=== PATIENT | female | born 1940 | race Hispanic/Latino ===

== ENCOUNTER 2016-04-20 10:27 | Outpatient (CLI) | payer MEDICARE ==
--- NOTE | 2016-04-20 12:06 | Mammography Report ---
BONE DEXA:04/20/16 10:27:00 CLINICAL: Postmenopausal. No comparison. TECHNIQUE: Two site bone DEXA performed on an Hologic scanner. FINDINGS: The average BMD of the lumbar spine L1-L4 is 1.223g/cm squared with a T-score of +1.6 and a Z-score of +4.1. The average BMD of the left hip is 0.452g/cm squared with a T-score of -4.0 and a Z-score of -2.1. IMPRESSION: 1. WHO classification: Normal with average fracture risk based on lumbar spine measurements. However, I suspect the BMD is falsely elevated in the spine because of scoliosis and endplate sclerosis at all levels. 2. WHO classification: Osteoporosis with I. fracture risk based on left hip measurements. RECOMMENDATION: Clinical correlation and routine screening. DEFINITIONS: BMD = Bone Mineral Density T-score = BMD related to mean peak bone mass of young adult (mean expressed in Standard Deviation) Z-score = Age matched BMD expressed in SD World Health Organization (WHO) Diagnostic Criteria Normal T-score > -1 SD Osteopenia T-score between -1 and -2.4 SD Osteoporosis T-score -2.5 SD or below NOTE: BMD is not the only risk factor for fracture. One should also consider factors such as the patient's age, risk of falling, previous osteoporotic fracture, family history of osteoporotic fractures, current smoker, and low body weight. Z-scores are not calculated if >80 years of age.
--- NOTE | 2016-04-20 13:40 | Ultrasound Report ---
RIGHT UPPER QUADRANT ULTRASOUND: HISTORY: Abdominal pain. Technique: Transabdominal ultrasound imaging with Doppler interrogation. FINDINGS: There appears to be a small amount of sludge in the gallbladder. No shadowing stones, wall thickening or abnormal distention. The common duct is normal in caliber. Images of the liver parenchyma, pancreas, right kidney and aorta are within normal limits. No perihepatic ascites. IMPRESSION: Small amount of sludge in the gallbladder.
== END 2016-04-20 10:28 | disposition home or self-care (01) ==
LOC: MAMMO 10:27
PROVIDERS: ATTEND Internal Medicine
DX: M81.0 Age-related osteoporosis without current pathological fracture (principal); Z78.0 Asymptomatic menopausal state
CPT/HCPCS: 76705; 77080

== ENCOUNTER 2020-09-12 14:01 | Inpatient (IN) | payer MEDICARE ==
[2020-09-12] MEDS ORDERED: SODIUM CHLORIDE 0.9% 500 ML 500 ML IV ONE (17:40)
[2020-09-12] MEDS ORDERED: CEFEPIME/NS 2 GM/100 ML 2 GM/100 ML BAG IV ONE (17:40)
--- NOTE | 2020-09-12 18:30 | XRay Report ---
RIGHT HIP 3 VIEWS INDICATION / CLINICAL INFORMATION: pain COMPARISON: None available. FINDINGS: BONES / JOINT(S): Previous placement of a right hip prosthesis. Superior and lateral displacement of the distal fragment. No acute appearing bony injury identified. SOFT TISSUES: No significant abnormality. ADDITIONAL FINDINGS: IVC filter. IVC Filter Recommendation: IVC filters should be removed if possible when they are no longer clinical ly necessary. (1) Refer to the established IVC filter management plan; (2) If there is no established plan for the patient's IVC filter, consider referral to interventional/vascular clinician on a nonem ergent basis for evaluation. . Signer Name: Phuc Ware MD Signed: 09/12/2020 6:26 PM Workstation Name: [id number]
--- NOTE | 2020-09-12 18:31 | XRay Report ---
CHEST 1 VIEW 09/12/2020 5:46 PM INDICATION / CLINICAL INFORMATION: weakness. COMPARISON: 05/25/2006. FINDINGS: SUPPORT DEVICES: ICD in satisfactory position. HEART / MEDIASTINUM: No significant abnormality. LUNGS / PLEURA: No significant pulmonary or pleural abnormality. No pneumothorax. ADDITIONAL FINDINGS: No significant additional findings. IMPRESSION: No acute abnormality. Signer Name: Phuc Ware MD Signed: 09/12/2020 6:27 PM Workstation Name: [id number]
[2020-09-12 18:34] LABS: Albumin 3.4 g/dL (3.9-5); Calcium 8.3 mg/dL (8.4-10.2)
[2020-09-12 18:50] LABS: Basophils # (Auto) 0.1 K/mm3 (0.0-0.1); Basophils % (Auto) 0.9 % (0.0-1.8); Eosinophils # (Auto) 0.1 K/mm3 (0.0-0.4); Hematocrit 29.6 % (30.3-42.9); Hemoglobin 9.8 gm/dl (10.1-14.3); Lymphocytes # (Auto) 1.3 K/mm3 (1.2-5.4); Lymphocytes % (Auto) 20.5 % (13.4-35.0); Mean Corpuscular HGB Conc 33 % (30-34); Mean Corpuscular Volume 97 fl (79-97); Monocytes # (Auto) 0.6 K/mm3 (0.0-0.8); Platelet Count 232 K/mm3 (140-440); Red Blood Count 3.07 M/mm3 (3.65-5.03); Red Cell Distribution Width 15.6 % (13.2-15.2)
[2020-09-12] MEDS ORDERED: propofoL 200 MG/20 ML VIAL IV ONE ×3 (19:20→20:32)
--- NOTE | 2020-09-12 20:44 | XRay Report ---
RIGHT HIP ONE VIEW INDICATION / CLINICAL INFORMATION: reduction COMPARISON: Earlier the same day. FINDINGS: BONES / JOINT(S): Previous placement right hip prosthesis. Persistent superior and lateral dislocatio n of the femoral component. SOFT TISSUES: No significant abnormality. ADDITIONAL FINDINGS: None. Signer Name: Phuc Ware MD Signed: 09/12/2020 8:39 PM Workstation Name: [id number]
--- NOTE | 2020-09-12 21:29 | Emergency Department Report ---
ED General Adult HPI - General Chief complaint: Wound/Laceration Stated complaint: FALL Time Seen by Provider: 09/12/20 16:00 Source: patient Mode of arrival: Stretcher Limitations: No Limitations - History of Present Illness Initial comments: Patient presents to the emergency department with a chief complaint of right hip pain after a ground-level fall. Patient denies hitting her head or have a loss of consciousness. Patient states that she has had 2 hip surgeries within the last couple of months. Severity scale (0 -10): 0 - Related Data Home Medications Medication Instructions Recorded Confirmed Last Taken ALPRAZolam [Xanax TAB] 0.5 mg PO BID PRN 05/24/16 09/12/20 05/24/16 09:00 FLUoxetine HCL [FLUoxetine] 40 mg PO QAM 05/24/16 09/12/20 05/24/16 09:00 HYDROcodone/APAP 7.5-325 [[place] 1 each PO Q8HR PRN 05/24/16 09/12/20 05/24/16 16:00 7.5-325 mg TAB] Previous Rx's Medication Instructions Recorded Last Taken Type Apixaban [Eliquis] 5 mg PO BID #60 tablet 05/31/16 Unknown Rx Aspirin 81 mg PO DAILY #30 tab.chew 05/31/16 Unknown Rx Furosemide [Lasix TAB] 20 mg PO QDAY #30 tablet 05/31/16 Unknown Rx Metoprolol Succinate 100 mg PO BID #60 tab.er.24h 05/31/16 Unknown Rx Potassium Chloride [Klor-Con] 20 meq PO DAILY #30 05/31/16 Unknown Rx Valsartan 80 mg PO DAILY #30 tablet 05/31/16 Unknown Rx dilTIAZem [Cardizem] 120 mg PO DAILY #30 tablet 05/31/16 Unknown Rx Allergies Allergy/AdvReac Type Severity Reaction Status Date / Time Sulfa (Sulfonamide AdvReac Nausea Verified 05/24/16 17:11 Antibiotics) ED Review of Systems ROS: Stated complaint: FALL Other details as noted in HPI Comment: All other systems reviewed and negative Constitutional: denies: chills, fever Eyes: denies: eye pain, eye discharge, vision change ENT: denies: ear pain, throat pain Respiratory: denies: cough, shortness of breath, wheezing Cardiovascular: denies: chest pain, palpitations Endocrine: no symptoms reported Gastrointestinal: denies: abdominal pain, nausea, diarrhea Genitourinary: denies: urgency, dysuria, discharge Musculoskeletal: other (Right hip pain). denies: back pain, joint swelling, ar thralgia Skin: denies: rash, lesions Neurological: denies: headache, weakness, paresthesias Psychiatric: denies: anxiety, depression Hematological/Lymphatic: denies: easy bleeding, easy bruising ED Past Medical Hx - Past Medical History Previous Medical History?: Yes Hx Hypertension: Yes Hx Heart Attack/AMI: No Hx Congestive Heart Failure: No Hx Deep Vein Thrombosis: No Hx Arthritis: Yes (all over) Hx Psychiatric Treatment: Yes (anxiety) - Surgical History Hx Coronary Stent: No Additional Surgical History: Hysterectomy - Social History Smoking Status: Never Smoker Substance Use Type: None - Medications Home Medications: Home Medications Medication Instructions Recorded Confirmed Last Taken Type ALPRAZolam [Xanax TAB] 0.5 mg PO BID PRN 05/24/16 09/12/20 05/24/16 09:00 History FLUoxetine HCL [FLUoxetine] 40 mg PO QAM 05/24/16 09/12/20 05/24/16 09:00 History HYDROcodone/APAP 7.5-325 [[place] 1 each PO Q8HR PRN 05/24/16 09/12/20 05/24/16 16:00 History 7.5-325 mg TAB] Apixaban [Eliquis] 5 mg PO BID #60 tablet 05/31/16 09/12/20 Unknown Rx Aspirin 81 mg PO DAILY #30 tab.chew 05/31/16 09/12/20 Unknown Rx Furosemide [Lasix TAB] 20 mg PO QDAY #30 tablet 05/31/16 09/12/20 Unknown Rx Metoprolol Succinate 100 mg PO BID #60 tab.er.24h 05/31/16 09/12/20 Unknown Rx Potassium Chloride [Klor-Con] 20 meq PO DAILY #30 05/31/16 09/12/20 Unknown Rx Valsartan 80 mg PO DAILY #30 tablet 05/31/16 09/12/20 Unknown Rx dilTIAZem [Cardizem] 120 mg PO DAILY #30 tablet 05/31/16 09/12/20 Unknown Rx ED Physical Exam - General Limitations: No Limitations General appearance: alert, in no apparent distress - Head Head exam: Present: atraumatic, normocephalic - Eye Eye exam: Present: normal appearance, PERRL, EOMI - ENT ENT exam: Present: mucous membranes moist - Neck Neck exam: Present: normal inspection - Respiratory Respiratory exam: Present: normal lung sounds bilaterally. Absent: respiratory distress - Cardiovascular Cardiovascular Exam: Present: regular rate, normal rhythm. Absent: systolic murmur, diastolic murmur, rubs, gallop - GI/Abdominal GI/Abdominal exam: Present: soft, normal bowel sounds - Extremities Exam Extremities exam: Present: other (Right leg is rotated and shortened; patient has bruising to the right hip with multiple skin tears to the right lower e xtremity) - Back Exam Back exam: Present: normal inspection - Neurological Exam Neurological exam: Present: alert, oriented X3 - Psychiatric Psychiatric exam: Present: normal affect, normal mood - Skin Skin exam: Present: warm, dry, intact, normal color. Absent: rash ED Course Vital Signs 09/12/20 09/12/20 09/12/20 14:05 16:56 17:01 Temperature 98.4 F Pulse Rate 62 53 L Pulse Rate [ Intra-Procedure ] Pulse Rate [ Post-Procedure] Pulse Rate [Pre -Procedure] Respiratory 16 16 24 Rate Respiratory Rate [Intra- Procedure] Respiratory Rate [Post- Procedure] Respiratory Rate [Pre- Procedure] Blood Pressure 116/56 136/43 Blood Pressure [Intra- Procedure] Blood Pressure [Post-Procedure ] Blood Pressure [Pre-Procedure] O2 Sat by Pulse 100 97 97 Oximetry O2 Sat by Pulse Oximetry [ Intra-Procedure ] O2 Sat by Pulse Oximetry [Post -Procedure] O2 Sat by Pulse Oximetry [Pre- Procedure] 09/12/20 09/12/20 09/12/20 17:03 18:01 19:01 Temperature Pulse Rate 66 52 L Pulse Rate [ Intra-Procedure ] Pulse Rate [ Post-Procedure] Pulse Rate [Pre -Procedure] Respiratory 18 13 25 H Rate Respiratory Rate [Intra- Procedure] Respiratory Rate [Post- Procedure] Respiratory Rate [Pre- Procedure] Blood Pressure 143/45 143/40 Blood Pressure [Intra- Procedure] Blood Pressure [Post-Procedure ] Blood Pressure [Pre-Procedure] O2 Sat by Pulse 97 98 99 Oximetry O2 Sat by Pulse Oximetry [ Intra-Procedure ] O2 Sat by Pulse Oximetry [Post -Procedure] O2 Sat by Pulse Oximetry [Pre- Procedure] 09/12/20 09/12/20 09/12/20 19:19 19:31 20:01 Temperature Pulse Rate 54 L 54 L Pulse Rate [ Intra-Procedure ] Pulse Rate [ Post-Procedure] Pulse Rate [Pre -Procedure] Respiratory 17 20 Rate Respiratory Rate [Intra- Procedure] Respiratory Rate [Post- Procedure] Respiratory Rate [Pre- Procedure] Blood Pressure 150/48 129/53 Blood Pressure [Intra- Procedure] Blood Pressure [Post-Procedure ] Blood Pressure [Pre-Procedure] O2 Sat by Pulse 99 100 100 Oximetry O2 Sat by Pulse Oximetry [ Intra-Procedure ] O2 Sat by Pulse Oximetry [Post -Procedure] O2 Sat by Pulse Oximetry [Pre- Procedure] 09/12/20 09/12/20 09/12/20 20:20 20:31 20:32 Temperature Pulse Rate 55 L Pulse Rate [ 45 L 55 L Intra-Procedure ] Pulse Rate [ 56 L 55 L Post-Procedure] Pulse Rate [Pre 58 L 55 L -Procedure] Respiratory 19 Rate Respiratory 8 L 29 H Rate [Intra- Procedure] Respiratory 6 L 17 Rate [Post- Procedure] Respiratory 11 L 8 L Rate [Pre- Procedure] Blood Pressure 121/55 Blood Pressure 115/49 106/52 [Intra- Procedure] Blood Pressure 108/48 106/52 [Post-Procedure ] Blood Pressure 121/55 [Pre-Procedure] O2 Sat by Pulse 99 100 Oximetry O2 Sat by Pulse 100 100 Oximetry [ Intra-Procedure ] O2 Sat by Pulse 100 100 Oximetry [Post -Procedure] O2 Sat by Pulse 100 100 Oximetry [Pre- Procedure] 09/12/20 09/12/20 09/12/20 20:50 21:01 21:31 Temperature Pulse Rate 59 L 52 L 50 L Pulse Rate [ Intra-Procedure ] Pulse Rate [ Post-Procedure] Pulse Rate [Pre -Procedure] Respiratory 12 16 20 Rate Respiratory Rate [Intra- Procedure] Respiratory Rate [Post- Procedure] Respiratory Rate [Pre- Procedure] Blood Pressure 106/49 107/56 Blood Pressure [Intra- Procedure] Blood Pressure [Post-Procedure ] Blood Pressure [Pre-Procedure] O2 Sat by Pulse 100 100 Oximetry O2 Sat by Pulse Oximetry [ Intra-Procedure ] O2 Sat by Pulse Oximetry [Post -Procedure] O2 Sat by Pulse Oximetry [Pre- Procedure] 09/12/20 22:01 Temperature Pulse Rate 51 L Pulse Rate [ Intra-Procedure ] Pulse Rate [ Post-Procedure] Pulse Rate [Pre -Procedure] Respiratory 19 Rate Respiratory Rate [Intra- Procedure] Respiratory Rate [Post- Procedure] Respiratory Rate [Pre- Procedure] Blood Pressure 111/51 Blood Pressure [Intra- Procedure] Blood Pressure [Post-Procedure ] Blood Pressure [Pre-Procedure] O2 Sat by Pulse 100 Oximetry O2 Sat by Pulse Oximetry [ Intra-Procedure ] O2 Sat by Pulse Oximetry [Post -Procedure] O2 Sat by Pulse Oximetry [Pre- Procedure] - Orthopedic Joint Reduction Joint #1 Consent Obtained: written consent Time Out Performed: Yes Side: right Joint Reduction Location: hip Analgesia: moderate sedation Technique Used: traction/counter-traction Post-Reduction Neuro Exam: intact Post-Reduction Vascular Exam: intact Post Reduction X-Ray Obtained: No Post Reduction X-Ray Results: not reduced Splint Applied: Yes Patient Tolerated Procedure: well, no complications Joint #2 Consent Obtained: written consent Time Out Performed: Yes Side: right Joint Reduction Location: other (Hip) Analgesia: moderate sedation Technique Used: traction/counter-traction Post-Reduction Neuro Exam: intact Post-Reduction Vascular Exam: intact Post Reduction X-Ray Obtained: No Post Reduction X-Ray Results: not reduced Splint Applied: Yes Patient Tolerated Procedure: well, no complications ED Medical Decision Making - Lab Data Result diagrams: 09/12/20 17:55 09/12/20 17:55 Lab Results 09/12/20 09/12/20 09/12/20 Range/Units 17:55 17:55 17:55 WBC 6.4 (4.5-11.0) K/mm3 RBC 3.07 L (3.65-5.03) M/mm3 Hgb 9.8 L (10.1-14.3) gm/dl Hct 29.6 L (30.3-42.9) % MCV 97 (79-97) fl MCH 32 (28-32) pg MCHC 33 (30-34) % RDW 15.6 H (13.2-15.2) % Plt Count 232 (140-440) K/mm3 Lymph % (Auto) 20.5 (13.4-35.0) % [place] % (Auto) 9.0 H (0.0-7.3) % Eos % (Auto) 1.0 (0.0-4.3) % Baso % (Auto) 0.9 (0.0-1.8) % Lymph # (Auto) 1.3 (1.2-5.4) K/mm3 [place] # (Auto) 0.6 (0.0-0.8) K/mm3 Eos # (Auto) 0.1 (0.0-0.4) K/mm3 Baso # (Auto) 0.1 (0.0-0.1) K/mm3 Seg Neutrophils % 68.6 (40.0-70.0) % Seg Neutrophils # 4.4 (1.8-7.7) K/mm3 APTT 33.5 (24.2-36.6) Sec. Sodium 138 (137-145) mmol/L Potassium 4.4 (3.6-5.0) mmol/L Chloride 99.6 (98-107) mmol/L Carbon Dioxide 25 (22-30) mmol/L Anion Gap 18 mmol/L BUN 16 (7-17) mg/dL Creatinine 1.1 (0.6-1.2) mg/dL Estimated GFR 48 ml/min BUN/Creatinine Ratio 15 % Glucose 86 (65-100) mg/dL Lactic Acid (0.7-2.0) mmol/L Calcium 8.3 L (8.4-10.2) mg/dL Total Bilirubin 0.60 (0.1-1.2) mg/dL AST 18 (5-40) units/L ALT 11 (7-56) units/L Alkaline Phosphatase 83 (35-129) units/L Total Protein 6.4 (6.3-8.2) g/dL Albumin 3.4 L (3.9-5) g/dL Albumin/Globulin Ratio 1.1 % 09/12/20 Range/Units 17:55 WBC (4.5-11.0) K/mm3 RBC (3.65-5.03) M/mm3 Hgb (10.1-14.3) gm/dl Hct (30.3-42.9) % MCV (79-97) fl MCH (28-32) pg MCHC (30-34) % RDW (13.2-15.2) % Plt Count (140-440) K/mm3 Lymph % (Auto) (13.4-35.0) % [place] % (Auto) (0.0-7.3) % Eos % (Auto) (0.0-4.3) % Baso % (Auto) (0.0-1.8) % Lymph # (Auto) (1.2-5.4) K/mm3 [place] # (Auto) (0.0-0.8) K/mm3 Eos # (Auto) (0.0-0.4) K/mm3 Baso # (Auto) (0.0-0.1) K/mm3 Seg Neutrophils % (40.0-70.0) % Seg Neutrophils # (1.8-7.7) K/mm3 APTT (24.2-36.6) Sec. Sodium (137-145) mmol/L Potassium (3.6-5.0) mmol/L Chloride (98-107) mmol/L Carbon Dioxide (22-30) mmol/L Anion Gap mmol/L BUN (7-17) mg/dL Creatinine (0.6-1.2) mg/dL Estimated GFR ml/min BUN/Creatinine Ratio % Glucose (65-100) mg/dL Lactic Acid 1.10 (0.7-2.0) mmol/L Calcium (8.4-10.2) mg/dL Total Bilirubin (0.1-1.2) mg/dL AST (5-40) units/L ALT (7-56) units/L Alkaline Phosphatase (35-129) units/L Total Protein (6.3-8.2) g/dL Albumin (3.9-5) g/dL Albumin/Globulin Ratio % - Radiology Data Radiology results: report reviewed - Medical Decision Making The patient had a hemihip replacement done on the right side initially at [facility] The patient had a total hip replacement 3 weeks ago at [facility] Spoke to on-call orthopedic surgeon at [facility] who was Dr. Hernandez who contacted Dr. Saunders who was the patient surgeon at [facility] who stated the patient could be discharged home Contacted [facility] transfer center at 9:45 PM Contacted [facility] in the on diversion Contacted [facility] and they are also on total diversion Contacted [place] and they are also on total diversion Spoke to linen room houseperson and it was discovered that Dr. Calderon will be back on Tuesday Patient was placed in a knee immobilizer and will be admitted for pain control and immobility with orthopedic follow-up upon their return Critical care attestation.: If time is entered above; I have spent that time in minutes in the direct care of this critically ill patient, excluding procedure time. ED Disposition Clinical Impression: Hip dislocation, right, Immobility Disposition: OP ADMIT IP TO THIS HOSP Is pt being admited?: Yes Does the pt Need Aspirin: No Condition: Fair Referrals: PRIMARY CARE, [Primary Care Provider] - 3-5 Days
[2020-09-12] MEDS ORDERED: MORPHINE 2 MG/1 ML INJ IV PRN (23:04)
[2020-09-12] MEDS ORDERED: MORPHINE 4 MG/1 ML INJ IV PRN (23:04)
[2020-09-12] MEDS ORDERED: ACETAMINOPHEN 325 MG TAB PO PRN (23:04)
[2020-09-12] MEDS ORDERED: ONDANSETRON 4 MG/2 ML INJ IV PRN (23:04)
--- NOTE | 2020-09-12 23:12 | History and Physical Report ---
History of Present Illness Date of examination: 09/12/20 Date of admission: 09/12/20 22:34 Chief complaint: Right Hip pain s/p Fall History of present illness: 79-year-old white female with known history of A. fib currently on anticoagulation, arthritis and recent history of right hip surgery who presents to the emergency room today complaining of right hip pain after having a ground- level fall. Patient denies any loss of consciousness and denies hitting her he ad. She denies any headache or dizziness, no blurry vision, no nausea vomiting, no hematuria or dysuria, no abdominal pain. Patient denies any history of seizure disorder. She indicated that she was walking when right knee suddenly give away and fell. She admits that she has had multiple falls recently. Patient has had 2 hip surgeries within the last couple of months. She had right domo-hip surgery initially at [facility] and then subsequently had total hip replacement about 3 weeks ago at [facility]. Patient lives at home by herself and not able to ambulate properly. Work-up in the emergency room today, x-ray of the right hip shows previous placement of right hip prosthesis. Persistent superior and lateral dislocation of the femoral components. Labs were unremarkable. Multiple facilities were contacted for patient to be evaluated as there is no orthopedic surgeon on duty today. [facility], [facility], [facility] and [facility] while contacted without any success. Decision was made to keep patient in this facility pending arrival of the orthopedic surgeon. Patient will not be able to take care of herself at home as she currently cannot ambulate. Past History Past Medical History: arthritis, hypertension, other (Anxiety) Past Surgical History: hysterectomy Social history: no significant social history Family history: no significant family history Medications and Allergies Allergies Allergy/AdvReac Type Severity Reaction Status Date / Time Sulfa (Sulfonamide AdvReac Nausea Verified 05/24/16 17:11 Antibiotics) Home Medications Medication Instructions Recorded Confirmed Last Taken Type ALPRAZolam [Xanax TAB] 0.5 mg PO BID PRN 05/24/16 09/12/20 05/24/16 09:00 History FLUoxetine HCL [FLUoxetine] 40 mg PO QAM 05/24/16 09/12/20 05/24/16 09:00 History HYDROcodone/APAP 7.5-325 [[place] 1 each PO Q8HR PRN 05/24/16 09/12/20 05/24/16 16:00 History 7.5-325 mg TAB] Apixaban [Eliquis] 5 mg PO BID #60 tablet 05/31/16 09/12/20 Unknown Rx Aspirin 81 mg PO DAILY #30 tab.chew 05/31/16 09/12/20 Unknown Rx Furosemide [Lasix TAB] 20 mg PO QDAY #30 tablet 05/31/16 09/12/20 Unknown Rx Metoprolol Succinate 100 mg PO BID #60 tab.er.24h 05/31/16 09/12/20 Unknown Rx Potassium Chloride [Klor-Con] 20 meq PO DAILY #30 05/31/16 09/12/20 Unknown Rx Valsartan 80 mg PO DAILY #30 tablet 05/31/16 09/12/20 Unknown Rx dilTIAZem [Cardizem] 120 mg PO DAILY #30 tablet 05/31/16 09/12/20 Unknown Rx Active Meds: Active Medications Acetaminophen (Acetaminophen 325 Mg Tab) 650 mg PO Q4H PRN PRN Reason: Pain MILD(1-3)/Fever >100.5/AVERY Heparin Sodium (Porcine) (Heparin 5,000 Unit/1 Ml Vial) 5,000 unit SUB-Q Q8HR RENEA Magnesium Hydroxide (Magnesium Hydroxide (Mom) Oral Liqd Udc) 30 ml PO Q4H PRN PRN Reason: Constipation Morphine Sulfate (Morphine 2 Mg/1 Ml Inj) 2 mg IV Q4H PRN PRN Reason: Pain, Moderate (4-6) Morphine Sulfate (Morphine 4 Mg/1 Ml Inj) 4 mg IV Q4H PRN PRN Reason: Pain , Severe (7-10) Ondansetron HCl (Ondansetron 4 Mg/2 Ml Inj) 4 mg IV Q8H PRN PRN Reason: Nausea And Vomiting Sodium Chloride (Sodium Chloride 0.9% 10 Ml Flush Syringe) 10 ml IV BID RENEA Sodium Chloride (Sodium Chloride 0.9% 10 Ml Flush Syringe) 10 ml IV PRN PRN PRN Reason: LINE FLUSH Review of Systems Constitutional: no fever, no chills Ears, nose, mouth and throat: no nasal congestion, no sore throat Cardiovascular: no chest pain, no palpitations Respiratory: no cough, no shortness of breath Gastrointestinal: no abdominal pain, no nausea, no vomiting Genitourinary Female: no pelvic pain, no flank pain, no dysuria Musculoskeletal: frequent falls, other (Right hip pain), no neck pain, no low back pain Integumentary: no rash, no pruritis Neurological: no headaches, no confusion Psychiatric: no anxiety, no depression Endocrine: no polyphagia, no polydipsia, no polyuria, no nocturia Exam - Constitutional Vitals: Temp Pulse Resp BP Pulse Ox 98.4 F 51 L 23 131/35 100 09/12/20 14:05 09/12/20 22:31 09/12/20 22:31 09/12/20 22:31 09/12/20 22:31 General appearance: Present: no acute distress, well-nourished - EENT Eyes: Present: PERRL, EOM intact. Absent: scleral icterus ENT: hearing intact, clear oral mucosa, dentition normal - Neck Neck: Present: supple, normal ROM - Respiratory Respiratory effort: normal Respiratory: bilateral: CTA - Cardiovascular Rhythm: regular Heart Sounds: Present: S1 & S2. Absent: gallop, systolic murmur, diastolic murmur, rub, click - Extremities Extremities: no ischemia, pulses intact, pulses symmetrical, normal temperature, Full ROM Extremity abnormal: edema (3+ right lower extremity edema), erythema (Extensive erythema over right hip), tenderness (Mild tenderness over right hip), other (Dressing over wound on right leg) Peripheral Pulses: within normal limits - Abdominal General gastrointestinal: Present: soft, non-tender, non-distended, normal bowel sounds. Absent: mass - Integumentary Integumentary: Present: clear, warm, dry. Absent: rash - Musculoskeletal Musculoskeletal: strength equal bilaterally - Psychiatric Psychiatric: appropriate mood/affect, intact judgment & insight, memory intact, cooperative - Neurologic Neurologic: CNII-XII intact, no focal deficits, moves all extremities Results - Labs CBC & Chem 7: 09/12/20 17:55 09/12/20 17:55 Labs: Abnormal lab results 09/12/20 09/12/20 Range/Units 17:55 17:55 RBC 3.07 L (3.65-5.03) M/mm3 Hgb 9.8 L (10.1-14.3) gm/dl Hct 29.6 L (30.3-42.9) % RDW 15.6 H (13.2-15.2) % [place] % (Auto) 9.0 H (0.0-7.3) % Calcium 8.3 L (8.4-10.2) mg/dL Albumin 3.4 L (3.9-5) g/dL Assessment and Plan - Patient Problems (1) Hip dislocation, right Current Visit: Yes Status: Acute Plan to address problem: Right hip placed in immobilizer. Consult placed to orthopedic surgery for myke luation. We will place patient on analgesic medication as needed. (2) History of atrial fibrillation Current Visit: Yes Status: Acute Plan to address problem: Rate is currently controlled. Patient is on anticoagulation with apixaban. (3) Hypertension Current Visit: Yes Status: Acute Plan to address problem: Blood pressure stable. Will resume routine home medications and monitor blood pressure closely. (4) DVT prophylaxis Current Visit: Yes Status: Acute Plan to address problem: Patient currently on anticoagulation. (5) Full code status Current Visit: Yes Status: Acute Plan to address problem: Patient is full code.
[2020-09-13] MEDS: ALPRAZolam 0.5 MG TAB PO PRN ×3 (02:13→21:33)
[2020-09-13] MEDS ORDERED: HEPARIN 5,000 UNIT/1 ML VIAL SUB-Q SCH (06:00)
[2020-09-13 06:44] LABS: Basophils # (Auto) 0.1 K/mm3 (0.0-0.1); Eosinophils # (Auto) 0.2 K/mm3 (0.0-0.4); Eosinophils % (Auto) 2.9 % (0.0-4.3); Hematocrit 27.2 % (30.3-42.9); Hemoglobin 9.1 gm/dl (10.1-14.3); Lymphocytes # (Auto) 1.3 K/mm3 (1.2-5.4); Mean Corpuscular HGB Conc 33 % (30-34); Mean Corpuscular Volume 97 fl (79-97); Monocytes # (Auto) 0.5 K/mm3 (0.0-0.8); Monocytes % (Auto) 9.4 % (0.0-7.3); Platelet Count 228 K/mm3 (140-440); Red Blood Count 2.82 M/mm3 (3.65-5.03); Red Cell Distribution Width 15.7 % (13.2-15.2)
[2020-09-13 06:52] LABS: INR 1.03 (0.87-1.13)
[2020-09-13 07:01] LABS: Calcium 8.4 mg/dL (8.4-10.2)
[2020-09-13] MEDS: APIXABAN 5 MG TAB PO SCH ×2 (11:36→21:33)
[2020-09-13] MEDS: FLUoxetine 20 MG CAP PO SCH (11:36)
[2020-09-13] MEDS: ASPIRIN 81 MG TAB CHEW PO SCH (11:36)
[2020-09-13] MEDS: FUROSEMIDE 20 MG TAB PO SCH (11:36)
[2020-09-13] MEDS: METOPROLOL SUCCINATE XL 100 MG TAB PO SCH ×2 (11:39→18:07)
[2020-09-13] MEDS: dilTIAZem CD 120 MG CAP PO SCH (12:55)
[2020-09-13] MEDS: POTASSIUM CHLORIDE 20 MEQ PACKET PO SCH (12:55)
[2020-09-13] MEDS: VALSARTAN 40 MG TAB PO SCH (13:00)
--- NOTE | 2020-09-13 15:11 | Progress Note ---
Assessment and Plan 79-year-old white female with known history of A. fib currently on anticoagulation, arthritis and recent history of right hip surgery who presents to the emergency room complaining of right hip pain after having a ground-level fall. Patient has had 2 hip surgeries within the last couple of months. She had right domo-hip surgery initially at [facility] and then subsequently had total hip replacement about 3 weeks ago at [facility]. Patient lives at home by herself and not able to ambulate properly. x-ray of the right hip shows previous placement of right hip prosthesis. Persistent superior and lateral dislocation of the femoral components. Admitted for further evaluation and Mx A/P -- Hip dislocation, right Right hip placed in immobilizer. Consult placed to orthopedic surgery for e valuation. patient on analgesic medication as needed. Plan to fix dislocation by close reduction when ortho surgeon available had multiple right hip dislocation in the past -- History of atrial fibrillation Rate is currently controlled. Patient is on anticoagulation with apixaban. -- Hypertension Blood pressure stable. resume routine home medications and monitor blood pressure closely. -- DVT prophylaxis Patient currently on anticoagulation. -- Full code status Daily clinical course: 09/13/20: patient admitted for right hip dislocation. Ortho surgeon unavailable till Tuesday, transfer to different facility was unsuccessful from ER. cont to provide supportive care. Plan for surgery tentatively on Tuesday. Subjective Date of service: 09/13/20 Interval history: Patient seen and examined resting on bed, vitals noted pt c/o right hip pain pending surgery Objective - Exam Narrative Exam: General appearance: Present: no acute distress, well-nourished, other (elderly white female) - EENT Eyes: PERRL, EOM intact ENT: hearing intact, clear oral mucosa Ears: bilateral: normal - Neck Neck: supple, normal ROM - Respiratory Respiratory effort: normal Respiratory: bilateral: CTA - Breasts Breasts: normal - Cardiovascular Rhythm: regular Heart Sounds: Present: S1 & S2. Absent: gallop, rub Extremities: pulses intact, normal color Extremity abnormal: edema (on RLE) - Gastrointestinal General gastrointestinal: Present: soft, non-tender, non-distended, normal bowel sounds - Integumentary Integumentary: clear, warm, dry - Musculoskeletal Musculoskeletal: other (right hip pain and tenderness with erythrema) - Neurologic Neurologic: no focal deficits, no gait normal - Psychiatric - Constitutional Vitals: Vital Signs - 12hr 09/13/20 11:39 Pulse Rate 61 Blood Pressure 120/46 - Labs CBC & Chem 7: 09/13/20 04:33 09/13/20 04:33 Labs: Abnormal lab results 09/12/20 09/12/20 09/13/20 Range/Units 17:55 17:55 04:33 RBC 3.07 L 2.82 L (3.65-5.03) M/mm3 Hgb 9.8 L 9.1 L (10.1-14.3) gm/dl Hct 29.6 L 27.2 L (30.3-42.9) % RDW 15.6 H 15.7 H (13.2-15.2) % [place] % (Auto) 9.0 H 9.4 H (0.0-7.3) % Glucose (65-100) mg/dL Calcium 8.3 L (8.4-10.2) mg/dL Albumin 3.4 L (3.9-5) g/dL 09/13/20 Range/Units 04:33 RBC (3.65-5.03) M/mm3 Hgb (10.1-14.3) gm/dl Hct (30.3-42.9) % RDW (13.2-15.2) % [place] % (Auto) (0.0-7.3) % Glucose 109 H (65-100) mg/dL Calcium (8.4-10.2) mg/dL Albumin (3.9-5) g/dL
[2020-09-13] MEDS: HYDROcodone/ACETAMINOPHEN 7.5-325MG TAB PO PRN (23:13)
[2020-09-14] MEDS: HYDROcodone/ACETAMINOPHEN 7.5-325MG TAB PO PRN ×2 (07:12→23:24)
[2020-09-14] MEDS: ASPIRIN 81 MG TAB CHEW PO SCH ×2 (08:42→12:01)
[2020-09-14] MEDS: FLUoxetine 20 MG CAP PO SCH ×2 (08:42→12:02)
[2020-09-14] MEDS: APIXABAN 5 MG TAB PO SCH ×3 (08:42→23:23)
[2020-09-14] MEDS: FUROSEMIDE 20 MG TAB PO SCH ×2 (08:42→12:02)
[2020-09-14] MEDS: ALPRAZolam 0.5 MG TAB PO PRN (08:49)
[2020-09-14] MEDS: METOPROLOL SUCCINATE XL 100 MG TAB PO SCH ×2 (11:49→17:37)
--- NOTE | 2020-09-14 13:09 | Progress Note ---
Assessment and Plan 79-year-old white female with known history of A. fib currently on anticoagulation, arthritis and recent history of right hip surgery who presents to the emergency room complaining of right hip pain after having a ground-level fall. Patient has had 2 hip surgeries within the last couple of months. She had right domo-hip surgery initially at [facility] and then subsequently had total hip replacement about 3 weeks ago at [facility]. Patient lives at home by herself and not able to ambulate properly. x-ray of the right hip shows previous placement of right hip prosthesis. Persistent superior and lateral dislocation of the femoral components. Admitted for further evaluation and Mx A/P -- Hip dislocation, right Right hip placed in immobilizer. Consult placed to orthopedic surgery for e valuation. patient on analgesic medication as needed. Plan to fix dislocation by close reduction when ortho surgeon available had multiple right hip dislocation in the past -- History of atrial fibrillation Rate is currently controlled. Patient is on anticoagulation with apixaban. -- Hypertension Blood pressure stable. resume routine home medications and monitor blood pressure closely. -- DVT prophylaxis Patient currently on anticoagulation. -- Full code status Daily clinical course: 09/13/20: patient admitted for right hip dislocation. Ortho surgeon unavailable till Tuesday, transfer to different facility was unsuccessful from ER. cont to provide supportive care. Plan for surgery tentatively on Tuesday. 09/14/20; cont supportive care and pain Mx as needed. pt resting on bed but has right hip pain. Plan for surgery when ortho service available Subjective Date of service: 09/14/20 Interval history: Patient seen and examined resting on bed, vitals noted pt c/o right hip pain pending surgery for next week likely Tuesday Objective - Exam Narrative Exam: General appearance: Present: no acute distress, well-nourished, other (elderly white female) - EENT Eyes: PERRL, EOM intact ENT: hearing intact, clear oral mucosa Ears: bilateral: normal - Neck Neck: supple, normal ROM - Respiratory Respiratory effort: normal Respiratory: bilateral: CTA - Breasts Breasts: normal - Cardiovascular Rhythm: regular Heart Sounds: Present: S1 & S2. Absent: gallop, rub Extremities: pulses intact, normal color Extremity abnormal: edema (on RLE) - Gastrointestinal General gastrointestinal: Present: soft, non-tender, non-distended, normal bowel sounds - Integumentary Integumentary: clear, warm, dry - Musculoskeletal Musculoskeletal: other (right hip pain and tenderness with erythrema) - Neurologic Neurologic: no focal deficits, no gait normal - Psychiatric - Constitutional Vitals: Vital Signs - 12hr 09/14/20 09/14/20 09/14/20 08:36 09:56 11:44 Temperature 97.4 F L 97.6 F Pulse Rate 56 L 54 L Respiratory 18 18 Rate Blood Pressure Blood Pressure 98/37 112/41 [Right] O2 Sat by Pulse 98 94 98 Oximetry 09/14/20 11:49 Temperature Pulse Rate 54 L Respiratory Rate Blood Pressure 112/41 Blood Pressure [Right] O2 Sat by Pulse Oximetry - Labs CBC & Chem 7: 09/13/20 04:33 09/13/20 04:33
[2020-09-14] MEDS: POTASSIUM CHLORIDE 20 MEQ PACKET PO SCH (17:42)
[2020-09-14] MEDS: VALSARTAN 40 MG TAB PO SCH (23:45)
[2020-09-15] MEDS: dilTIAZem CD 120 MG CAP PO SCH ×2 (00:06→18:07)
[2020-09-15] MEDS: HYDROcodone/ACETAMINOPHEN 7.5-325MG TAB PO PRN ×2 (05:55→20:37)
[2020-09-15] MEDS: FUROSEMIDE 20 MG TAB PO SCH (11:44)
[2020-09-15] MEDS: ASPIRIN 81 MG TAB CHEW PO SCH (11:44)
[2020-09-15] MEDS: FLUoxetine 20 MG CAP PO SCH (11:44)
[2020-09-15] MEDS: APIXABAN 5 MG TAB PO SCH ×2 (11:44→21:47)
[2020-09-15] MEDS: METOPROLOL SUCCINATE XL 100 MG TAB PO SCH ×2 (11:44→18:06)
[2020-09-15] MEDS: ALPRAZolam 0.5 MG TAB PO PRN ×2 (12:08→23:29)
--- NOTE | 2020-09-15 13:20 | Consultation ---
History of Present Illness - [facility] Consult date: 09/15/20 Consult reason: joint pain History of present illness: 79 y/o female with c/o right hip pain after a fall at home, PMHx significant for right femoral neck fracture where she underwent bipolar hip replacement suppo sedly and subsequently 2nd surgery at [facility] where she had conversion to a total hip replacement. Plain xrays taken in the ED showed a dislocated prosthesis and admitted for closed possible open reduction right hip Past History Past Medical History: arthritis, hypertension, other (Anxiety) Past Surgical History: hysterectomy Social history: no significant social history Family history: no significant family history Medications and Allergies Allergies Allergy/AdvReac Type Severity Reaction Status Date / Time morphine Allergy Dizziness Verified 09/13/20 21:40 Sulfa (Sulfonamide AdvReac Nausea Verified 05/24/16 17:11 Antibiotics) Home Medications Medication Instructions Recorded Confirmed Last Taken Type FLUoxetine HCL [FLUoxetine] 40 mg PO QAM 05/24/16 09/12/20 05/24/16 09:00 History Apixaban [Eliquis] 5 mg PO BID #60 tablet 05/31/16 09/12/20 Unknown Rx Aspirin 81 mg PO DAILY #30 tab.chew 05/31/16 09/12/20 Unknown Rx Furosemide [Lasix TAB] 20 mg PO QDAY #30 tablet 05/31/16 09/12/20 Unknown Rx Metoprolol Succinate 100 mg PO BID #60 tab.er.24h 05/31/16 09/12/20 Unknown Rx Valsartan 80 mg PO DAILY #30 tablet 05/31/16 09/12/20 Unknown Rx dilTIAZem [Cardizem] 120 mg PO DAILY #30 tablet 05/31/16 09/12/20 Unknown Rx ALPRAZolam [Xanax TAB] 0.5 mg PO BID PRN #10 09/19/20 Unknown Rx HYDROcodone/APAP 7.5-325 [Dazey 1 each PO Q8HR PRN #10 09/19/20 Unknown Rx 7.5-325 mg TAB] Active Meds: Active Medications Acetaminophen (Acetaminophen 325 Mg Tab) 650 mg PO Q4H PRN PRN Reason: Pain MILD(1-3)/Fever >100.5/AVERY Hydrocodone Bitart/Acetaminophen (Hydrocodone/Acetaminophen 7.5-325mg Tab) 1 each PO Q4H PRN PRN Reason: Pain, Moderate (4-6) Last Admin: 09/15/20 05:55 Dose: 1 each Documented by: Alprazolam (Alprazolam 0.5 Mg Tab) 0.5 mg PO BID PRN PRN Reason: Anxiety Last Admin: 09/15/20 12:08 Dose: 0.5 mg Documented by: Apixaban (Apixaban 5 Mg Tab) 5 mg PO BID [facility] Last Admin: 09/15/20 11:44 Dose: 5 mg Documented by: Aspirin (Aspirin 81 Mg Tab Chew) 81 mg PO DAILY [facility] Last Admin: 09/15/20 11:44 Dose: 81 mg Documented by: Diltiazem HCl (Diltiazem Cd 120 Mg Cap) 120 mg PO DAILY [facility] Last Admin: 09/15/20 00:06 Dose: Not Given Documented by: Fluoxetine HCl (Fluoxetine 20 Mg Cap) 40 mg PO QAM [facility] Last Admin: 09/15/20 11:44 Dose: 40 mg Documented by: Furosemide (Furosemide 20 Mg Tab) 20 mg PO QDAY [facility] Last Admin: 09/15/20 11:44 Dose: 20 mg Documented by: Magnesium Hydroxide (Magnesium Hydroxide (Mom) Oral Liqd Udc) 30 ml PO Q4H PRN PRN Reason: Constipation Metoprolol Succinate (Metoprolol Succinate Xl 100 Mg Tab) 100 mg PO BID@0800,1700 [facility] Last Admin: 09/15/20 11:44 Dose: 100 mg Documented by: Ondansetron HCl (Ondansetron 4 Mg/2 Ml Inj) 4 mg IV Q8H PRN PRN Reason: Nausea And Vomiting Potassium Chloride (Potassium Chloride 20 Meq Packet) 20 meq PO DAILY [facility] Last Admin: 09/14/20 17:42 Dose: 20 meq Documented by: Sodium Chloride (Sodium Chloride 0.9% 10 Ml Flush Syringe) 10 ml IV BID [facility] Last Admin: 09/14/20 23:25 Dose: 10 ml Documented by: Sodium Chloride (Sodium Chloride 0.9% 10 Ml Flush Syringe) 10 ml IV PRN PRN PRN Reason: LINE FLUSH Valsartan (Valsartan 40 Mg Tab) 80 mg PO DAILY [facility] Last Admin: 09/14/20 23:45 Dose: 80 mg Documented by: Physical Examination - Physical exam Narrative exam: Right LE - shortened externally rotated, distal n/v intact Eyes: PERRL ENT: Positive: clear oral mucosa Respiratory effort: normal Respiratory: bilateral: CTA Rhythm: regular Heart Sounds: Positive: S1 & S2 General gastrointestinal: Positive: soft, non-tender, non-distended, normal bowel sounds Integumentary: clear, warm, dry Neurologic: Positive: CNII-XII intact, moves all extremities, gait normal. Negative: focal deficits - Cervical Spine Neck pain: none Tenderness with palpation: none Full ROM: yes ROM: flexion: normal ROM: extension: normal ROM: rotation right: normal ROM: rotation left: normal ROM: lateral flexion right: normal ROM: lateral flexion left: normal - Lumbar Spine Back pain: none Tenderness with palpation: none Appearance: normal Full ROM: yes ROM: flexion: normal ROM: extension: normal ROM: rotation right: normal ROM: rotation left: normal ROM: lateral flexion right: normal ROM: lateral flexion left: normal Assessment and Plan assessment - dislocated right total hip prosthesis plan - will take to OR and reduce in anesthesia tomorrow
--- NOTE | 2020-09-15 15:25 | Anesthesia Consultation ---
Anesthesia Consult and Med Hx Date of service: 09/15/20 - Airway Anesthetic Teeth Evaluation: Good, Partials (lower back) ROM Head & Neck: Adequate Mental/Hyoid Distance: Adequate Mallampati Class: Class II Intubation Access Assessment: Probably Good - Pre-Operative Health Status ASA Pre-Surgery Classification: ASA3 Proposed Anesthetic Plan: General - Pulmonary Hx Smoking: No Hx Pneumonia: No - Cardiovascular System Hx Hypertension: Yes Hx Heart Attack/AMI: No Hx Angina: No Hx Cardia Arrhythmia: Yes (atrial fibrillation) Hx Internal Defibrillator: Yes - Central Nervous System Hx Back Pain: Yes (right hip dislocation) - Other Systems Hx Cancer: Yes (skin caner legs)
[2020-09-15] MEDS: POTASSIUM CHLORIDE 20 MEQ PACKET PO SCH (18:07)
--- NOTE | 2020-09-15 18:38 | Progress Note ---
Assessment and Plan 79-year-old white female with known history of A. fib currently on anticoagulation, arthritis and recent history of right hip surgery who presents to the emergency room complaining of right hip pain after having a ground-level fall. Patient has had 2 hip surgeries within the last couple of months. She had right domo-hip surgery initially at [facility] and then subsequently had total hip replacement about 3 weeks ago at [facility]. Patient lives at home by herself and not able to ambulate properly. x-ray of the right hip shows previous placement of right hip prosthesis. Persistent superior and lateral dislocation of the femoral components. Admitted for further evaluation and Mx A/P -- Hip dislocation, right Right hip placed in immobilizer. Consult placed to orthopedic surgery for e valuation. patient on analgesic medication as needed. Plan to fix dislocation by close reduction tomorrow had multiple right hip dislocation in the past -- History of atrial fibrillation Rate is currently controlled. Patient is on anticoagulation with apixaban. -- Hypertension Blood pressure stable. resume routine home medications and monitor blood pressure closely. -- DVT prophylaxis Patient currently on anticoagulation. -- Full code status Daily clinical course: 09/13/20: patient admitted for right hip dislocation. Ortho surgeon unavailable till Tuesday, transfer to different facility was unsuccessful from ER. cont to provide supportive care. Plan for surgery tentatively on Tuesday. 09/14/20; cont supportive care and pain Mx as needed. pt resting on bed but has right hip pain. Plan for surgery when ortho service available 09/15/20: Planned for OR tomorrow. cont supportive care and pain Mx as needed. follow clinically Subjective Date of service: 09/15/20 Interval history: Patient seen and examined resting on bed, vitals noted pt c/o right hip pain pending surgery for tomorrow Objective - Exam Narrative Exam: General appearance: Present: no acute distress, well-nourished, other (elderly white female) - EENT Eyes: PERRL, EOM intact ENT: hearing intact, clear oral mucosa Ears: bilateral: normal - Neck Neck: supple, normal ROM - Respiratory Respiratory effort: normal Respiratory: bilateral: CTA - Breasts Breasts: normal - Cardiovascular Rhythm: regular Heart Sounds: Present: S1 & S2. Absent: gallop, rub Extremities: pulses intact, normal color Extremity abnormal: edema (on RLE) - Gastrointestinal General gastrointestinal: Present: soft, non-tender, non-distended, normal bowel sounds - Integumentary Integumentary: clear, warm, dry - Musculoskeletal Musculoskeletal: other (right hip pain and tenderness with erythrema) - Neurologic Neurologic: no focal deficits, no gait normal - Psychiatric - Constitutional Vitals: Vital Signs - 12hr 09/15/20 09/15/20 09/15/20 07:34 07:59 11:15 Temperature 97.7 F 97.4 F L Pulse Rate 50 L 51 L Respiratory 18 18 Rate Blood Pressure 115/39 107/36 O2 Sat by Pulse 96 96 99 Oximetry 09/15/20 09/15/20 09/15/20 11:44 18:06 18:07 Temperature Pulse Rate 51 L 60 60 Respiratory Rate Blood Pressure 107/36 110/60 110/60 O2 Sat by Pulse Oximetry - Labs CBC & Chem 7: 09/13/20 04:33 09/13/20 04:33
[2020-09-16] MEDS: SODIUM CHLORIDE 0.9% 1000 ML 1,000 ML IV SCH (09:19)
[2020-09-16] MEDS: VALSARTAN 40 MG TAB PO SCH ×2 (10:16→20:41)
[2020-09-16] MEDS: APIXABAN 5 MG TAB PO SCH ×2 (10:17→22:21)
[2020-09-16] MEDS ORDERED: propofoL 200 MG/20 ML VIAL IV ONE (10:59)
[2020-09-16] MEDS ORDERED: LIDOCAINE MPF (2%) 20 MG/1 ML VIAL 5 ML ONE (11:57)
[2020-09-16] MEDS ORDERED: SUCCINYLCHOLINE CHLORIDE 200 MG/10 ML INJ MDV ONE (11:57)
[2020-09-16] MEDS ORDERED: ePHEDrine SULFATE 50 MG/1 ML INJ ONE (12:01)
--- NOTE | 2020-09-16 12:25 | Procedure Note ---
Date of procedure: 09/16/20 Pre-op diagnosis: Dislocated right total hip prosthesis Post-op diagnosis: same Procedure: Attempted closed reduction right hip Procedure Patient was brought to the OR on the hospital bed following induction with IV propofol the right lower extremity was placed in longitudinal traction with countertraction placed on the patient's pelvis. After multiple attempts both with and without C arm visualization the hip joint remained on reduced. Next patient was given MAC anesthesia as well as muscle relaxation to helper electrical in reduction, this to however failed to adequately reduce the dislocated prosthesis. At this point the patient was awaken and was taken to postop recovery in a stable condition she will most likely require a open reduction in the very near future Anesthesia: MAC Surgeon: SHON HILARIO Estimated blood loss: none Pathology: none Condition: stable Disposition: PACU
[2020-09-16] MEDS: METOPROLOL SUCCINATE XL 100 MG TAB PO SCH ×2 (14:16→18:01)
[2020-09-16] MEDS: FUROSEMIDE 20 MG TAB PO SCH (14:17)
[2020-09-16] MEDS: dilTIAZem CD 120 MG CAP PO SCH (14:17)
[2020-09-16] MEDS: HYDROcodone/ACETAMINOPHEN 7.5-325MG TAB PO PRN ×2 (14:25→22:21)
[2020-09-16] MEDS: FLUoxetine 20 MG CAP PO SCH (14:25)
[2020-09-16] MEDS: POTASSIUM CHLORIDE 20 MEQ PACKET PO SCH (14:29)
--- NOTE | 2020-09-16 14:53 | XRay Report ---
INTRAOPERATIVE FLUOROSCOPY: RIGHT HIP INDICATION / CLINICAL INFORMATION: closed reduction. TECHNIQUE: Intraoperative spot images were obtained during the procedure. FINDINGS: Images show attempted reduction of dislocation of the right hip arthroplasty. See operative/procedure note by performing physician for full details. Fluoroscopy Time: 5 seconds. Fluoroscopy Images: 1. Signer Name: Eliezer Zee MD Signed: 09/16/2020 2:49 PM Workstation Name: [id number]
--- NOTE | 2020-09-16 15:49 | Progress Note ---
Assessment and Plan 79-year-old white female with known history of A. fib currently on anticoagulation, arthritis and recent history of right hip surgery who presents to the emergency room complaining of right hip pain after having a ground-level fall. Patient has had 2 hip surgeries within the last couple of months. She had right domo-hip surgery initially at [facility] and then subsequently had total hip replacement about 3 weeks ago at [facility]. Patient lives at home by herself and not able to ambulate properly. x-ray of the right hip shows previous placement of right hip prosthesis. Persistent superior and lateral dislocation of the femoral components. Admitted for further evaluation and Mx A/P -- Hip dislocation, right Right hip placed in immobilizer. Consult placed to orthopedic surgery for evaluation. patient on analgesic medication as needed. Unable to fix dislocation by close reduction had multiple right hip dislocation in the past -- History of atrial fibrillation Rate is currently controlled. Patient is on anticoagulation with apixaban. -- Hypertension Blood pressure stable. resume routine home medications and monitor blood pressure closely. -- DVT prophylaxis Patient currently on anticoagulation. -- Full code status Daily clinical course: 09/16: Attempted closed reduction right hip today but unable to do by orthopedic. Patient will need open reduction, will continue to follow. Subjective Date of service: 09/16/20 Interval history: Patient seen and examined resting on bed, vitals noted pt c/o right hip pain pending surgery Objective - Exam Narrative Exam: General appearance: Present: no acute distress, well-nourished, other (elderly white female) - EENT Eyes: PERRL, EOM intact ENT: hearing intact, clear oral mucosa Ears: bilateral: normal - Neck Neck: supple, normal ROM - Respiratory Respiratory effort: normal Respiratory: bilateral: CTA - Breasts Breasts: normal - Cardiovascular Rhythm: regular Heart Sounds: Present: S1 & S2. Absent: gallop, rub Extremities: pulses intact, normal color Extremity abnormal: edema (on RLE) - Gastrointestinal General gastrointestinal: Present: soft, non-tender, non-distended, normal bowel sounds - Integumentary Integumentary: clear, warm, dry - Musculoskeletal Musculoskeletal: other (right hip pain and tenderness with erythrema) - Neurologic Neurologic: no focal deficits, no gait normal - Psychiatric - Constitutional Vitals: Vital Signs - 12hr 09/16/20 09/16/20 09/16/20 05:45 07:49 09:41 Temperature 98.1 F 98.0 F Pulse Rate 49 L 47 L Respiratory 18 18 Rate Blood Pressure 107/31 99/37 O2 Sat by Pulse 94 100 98 Oximetry 09/16/20 09/16/20 12:44 13:10 Temperature 97.4 F L Pulse Rate 46 L 44 L Respiratory 14 17 Rate Blood Pressure 105/35 117/40 O2 Sat by Pulse 97 100 Oximetry - Labs CBC & Chem 7: 09/13/20 04:33 09/13/20 04:33
--- NOTE | 2020-09-16 15:56 | Post Anesthesia Evaluation ---
- Post Anesthesia Evaluation Patient Participated: Yes Airway Patent: Yes Stable Respiratory Function: Yes Nausea/Vomiting: No Temp > 96.8F: Yes Pain Manageable: Yes Adequeate Hydration: Yes Anesthesia Complications: No Block Receding Appropriately: Not Applicable Patient on Ventilator: No
[2020-09-16] MEDS: ASPIRIN 81 MG TAB CHEW PO SCH (20:42)
[2020-09-16] MEDS: MAGNESIUM HYDROXIDE (MOM) ORAL LIQD UDC PO PRN (22:24)
[2020-09-17] MEDS: ALPRAZolam 0.5 MG TAB PO PRN ×2 (01:25→17:59)
[2020-09-17] MEDS: SODIUM CHLORIDE 0.9% 1000 ML 1,000 ML IV SCH (06:26)
[2020-09-17] MEDS: dilTIAZem CD 120 MG CAP PO SCH (09:51)
[2020-09-17] MEDS: ASPIRIN 81 MG TAB CHEW PO SCH (09:52)
[2020-09-17] MEDS: VALSARTAN 40 MG TAB PO SCH (09:52)
[2020-09-17] MEDS: FUROSEMIDE 20 MG TAB PO SCH (09:52)
[2020-09-17] MEDS: METOPROLOL SUCCINATE XL 100 MG TAB PO SCH ×2 (09:53→21:38)
[2020-09-17] MEDS: FLUoxetine 20 MG CAP PO SCH (09:53)
[2020-09-17] MEDS: APIXABAN 5 MG TAB PO SCH ×2 (09:53→22:25)
[2020-09-17] MEDS: POTASSIUM CHLORIDE 20 MEQ PACKET PO SCH (10:43)
--- NOTE | 2020-09-17 12:09 | Progress Note ---
Assessment and Plan right total hip dislocation will treat conservatively, bedrest followed by bed to chair transers... Subjective Date of service: 09/17/20 Interval history: spoke to patient's orthopedic surgeon, Primo Burns, who informed me that the patient has had multiple dislocations since initial procedure along with cardiac arrest intra-operatively, recommend conservative management, leaving hip dislocated. Will arrange for SNF for this patient... Objective Vital signs: Vital Signs - 12hr 09/17/20 09/17/20 09/17/20 00:37 05:19 07:38 Temperature 98.4 F 98.3 F 98.1 F Pulse Rate 63 64 62 Respiratory 18 18 16 Rate Respiratory Rate [Bilateral Lower Chest] Blood Pressure 130/50 109/41 103/48 O2 Sat by Pulse 99 96 95 Oximetry 09/17/20 09/17/20 09:51 10:00 Temperature Pulse Rate 60 Respiratory Rate Respiratory 18 Rate [Bilateral Lower Chest] Blood Pressure 106/42 O2 Sat by Pulse Oximetry - Labs CBC & BMP: 09/13/20 04:33 09/13/20 04:33
--- NOTE | 2020-09-17 15:54 | Progress Note ---
Assessment and Plan 79-year-old white female with known history of A. fib currently on anticoagulation, arthritis and recent history of right hip surgery who presents to the emergency room complaining of right hip pain after having a ground-level fall. Patient has had 2 hip surgeries within the last couple of months. She had right domo-hip surgery initially at [facility] and then subsequently had total hip replacement about 3 weeks ago at [facility]. Patient lives at home by herself and not able to ambulate properly. x-ray of the right hip shows previous placement of right hip prosthesis. Persistent superior and lateral dislocation of the femoral components. Admitted for further evaluation and Mx A/P -- Hip dislocation, right Right hip placed in immobilizer. Consult placed to orthopedic surgery for e valuation. patient on analgesic medication as needed. Unable to fix dislocation by close reduction had multiple right hip dislocation in the past Per ortho not a candidate for open reduction as she just had one 2 months ago and that failed plan to manage conservatively PT consulted _ recommendation pending -- History of atrial fibrillation Rate is currently controlled. Patient is on anticoagulation with apixaban. -- Hypertension Blood pressure stable. resume routine home medications and monitor blood pressure closely. -- DVT prophylaxis Patient currently on anticoagulation. -- Full code status Daily clinical course: 09/16: Attempted closed reduction right hip today but unable to do by orthopedic. Patient will need open reduction, will continue to follow. 09/17: patient's orthopedic surgeon, Primo Burns, who informed us that the patient has had multiple dislocations since initial procedure along with cardiac arrest intra-operatively, Ortho recommend conservative management, leaving hip dislocated. Will arrange for SNF for this patient...PT ordered Subjective Date of service: 09/17/20 Interval history: Patient seen and examined discussed with Dr Calderon pt c/o right hip pain pending PT eval Objective - Constitutional Vitals: Vital Signs - 12hr 09/17/20 09/17/20 09/17/20 05:19 07:38 09:51 Temperature 98.3 F 98.1 F Pulse Rate 64 62 60 Respiratory 18 16 Rate Respiratory Rate [Bilateral Lower Chest] Blood Pressure 109/41 103/48 106/42 O2 Sat by Pulse 96 95 Oximetry 09/17/20 09/17/20 09/17/20 10:00 11:49 12:00 Temperature 97.9 F Pulse Rate 61 Respiratory 16 Rate Respiratory 18 Rate [Bilateral Lower Chest] Blood Pressure 110/46 O2 Sat by Pulse 98 98 Oximetry General appearance: Present: no acute distress, well-nourished, other (elderly white female) - EENT Eyes: PERRL, EOM intact ENT: hearing intact, clear oral mucosa Ears: bilateral: normal - Neck Neck: supple, normal ROM - Respiratory Respiratory effort: normal Respiratory: bilateral: CTA - Breasts Breasts: normal - Cardiovascular Rhythm: regular Heart Sounds: Present: S1 & S2. Absent: gallop, rub Extremities: pulses intact, normal color Extremity abnormal: edema (on RLE) - Gastrointestinal General gastrointestinal: Present: soft, non-tender, non-distended, normal bowel sounds - Integumentary Integumentary: clear, warm, dry - Musculoskeletal Musculoskeletal: other (right hip pain and tenderness with erythrema) - Neurologic Neurologic: no focal deficits, no gait normal - Psychiatric Psychiatric: memory intact, appropriate mood/affect, intact judgment & insight - Labs CBC & Chem 7: 09/13/20 04:33 09/13/20 04:33
[2020-09-17] MEDS: HYDROcodone/ACETAMINOPHEN 7.5-325MG TAB PO PRN (22:25)
[2020-09-17] MEDS: MAGNESIUM HYDROXIDE (MOM) ORAL LIQD UDC PO PRN (22:26)
[2020-09-18] MEDS: ALPRAZolam 0.5 MG TAB PO PRN ×2 (01:44→22:05)
[2020-09-18] MEDS: METOPROLOL SUCCINATE XL 100 MG TAB PO SCH (08:20)
--- NOTE | 2020-09-18 09:27 | Progress Note ---
Assessment and Plan Assessment and plan: 79-year-old white female with known history of A. fib currently on anticoagulation, arthritis and recent history of right hip surgery who presents to the emergency room complaining of right hip pain after having a ground-level fall. Patient has had 2 hip surgeries within the last couple of months. She had right domo-hip surgery initially at [facility] and then subsequently had total hip replacement about 3 weeks ago at [facility]. Patient lives at home by herself and not able to ambulate properly. x-ray of the right hip shows previous placement of right hip prosthesis. Persistent superior and lateral dislocation of the femoral components. Admitted for further evaluation and Mx A/P -- Hip dislocation, right Right hip placed in immobilizer. Consult placed to orthopedic surgery for evaluation. patient on analgesic medication as needed. Unable to fix dislocation by close reduction had multiple right hip dislocation in the past Per ortho not a candidate for open reduction as she just had one 2 months ago and that failed plan to manage conservatively PT consulted _ recommendation pending -- History of atrial fibrillation Rate is currently controlled. Patient is on anticoagulation with apixaban. -- Hypertension Blood pressure stable. resume routine home medications and monitor blood pressure closely. -- DVT prophylaxis Patient currently on anticoagulation. -- Full code status Daily clinical course: 09/16: Attempted closed reduction right hip today but unable to do by orthopedic. Patient will need open reduction, will continue to follow. 09/17: patient's orthopedic surgeon, Primo Burns, who informed us that the patient has had multiple dislocations since initial procedure along with cardiac arrest intra-operatively, Ortho recommend conservative management, leaving hip dislocated. Will arrange for SNF for this patient...PT ordered 09/18/20 Patient with hip dislocation. Patient was evaluated by Dr. Calderon, Orthopedic Surgeon. She is on conservative management. Will repeat labs in am. History Interval history: Right hip dislocation Right hip pain Hospitalist Physical - Physical exam Narrative exam: Gen:Not in acute distress, lying in bed HEENT:Normocephalic, atraumatic Neck:supple, no JVD Lungs:clear to auscultation, bilaterally, no wheeze Heart:S1 and S2 reg, no murmurs, rubs or gallop Abd:Soft, non tender, non distended, normal bowel sounds Ext: Tenderness right hip Neuro:awake,alert, - Constitutional Vitals: Temp Pulse Resp BP Pulse Ox 97.7 F 61 16 102/50 96 09/18/20 07:59 09/18/20 07:59 09/18/20 07:59 09/18/20 07:59 09/18/20 07:59 General appearance: Present: no acute distress, well-nourished, other (elderly white female) Results - Labs CBC & Chem 7: 09/13/20 04:33 09/18/20 08:18 Labs: Laboratory Last Values WBC 5.6 K/mm3 (4.5-11.0) 09/13/20 04:33 RBC 2.82 M/mm3 (3.65-5.03) L 09/13/20 04:33 Hgb 9.1 gm/dl (10.1-14.3) L 09/13/20 04:33 Hct 27.2 % (30.3-42.9) L 09/13/20 04:33 MCV 97 fl (79-97) 09/13/20 04:33 MCH 32 pg (28-32) 09/13/20 04:33 MCHC 33 % (30-34) 09/13/20 04:33 RDW 15.7 % (13.2-15.2) H 09/13/20 04:33 Plt Count 228 K/mm3 (140-440) 09/13/20 04:33 Lymph % (Auto) 23.0 % (13.4-35.0) 09/13/20 04:33 [place] % (Auto) 9.4 % (0.0-7.3) H 09/13/20 04:33 Eos % (Auto) 2.9 % (0.0-4.3) 09/13/20 04:33 Baso % (Auto) 1.0 % (0.0-1.8) 09/13/20 04:33 Lymph # (Auto) 1.3 K/mm3 (1.2-5.4) 09/13/20 04:33 [place] # (Auto) 0.5 K/mm3 (0.0-0.8) 09/13/20 04:33 Eos # (Auto) 0.2 K/mm3 (0.0-0.4) 09/13/20 04:33 Baso # (Auto) 0.1 K/mm3 (0.0-0.1) 09/13/20 04:33 Seg Neutrophils % 63.7 % (40.0-70.0) 09/13/20 04:33 Seg Neutrophils # 3.6 K/mm3 (1.8-7.7) 09/13/20 04:33 PT 14.0 Sec. (12.2-14.9) 09/13/20 04:33 INR 1.03 (0.87-1.13) 09/13/20 04:33 APTT 33.5 Sec. (24.2-36.6) 09/12/20 17:55 Sodium 138 mmol/L (137-145) 09/13/20 04:33 Potassium 4.1 mmol/L (3.6-5.0) 09/13/20 04:33 Chloride 100.8 mmol/L (98-107) 09/13/20 04:33 Carbon Dioxide 26 mmol/L (22-30) 09/13/20 04:33 Anion Gap 15 mmol/L 09/13/20 04:33 BUN 17 mg/dL (7-17) 09/13/20 04:33 Creatinine 1.0 mg/dL (0.6-1.2) 09/13/20 04:33 Estimated GFR 53 ml/min 09/13/20 04:33 BUN/Creatinine Ratio 17 % 09/13/20 04:33 Glucose 109 mg/dL (65-100) H 09/13/20 04:33 Lactic Acid 1.50 mmol/L (0.7-2.0) 09/12/20 20:45 Calcium 8.4 mg/dL (8.4-10.2) 09/13/20 04:33 Total Bilirubin 0.60 mg/dL (0.1-1.2) 09/12/20 17:55 AST 18 units/L (5-40) 09/12/20 17:55 ALT 11 units/L (7-56) 09/12/20 17:55 Alkaline Phosphatase 83 units/L (35-129) 09/12/20 17:55 Total Protein 6.4 g/dL (6.3-8.2) 09/12/20 17:55 Albumin 3.4 g/dL (3.9-5) L 09/12/20 17:55 Albumin/Globulin Ratio 1.1 % 09/12/20 17:55 Nasal Screen MRSA (PCR) Negative (Negative) 09/13/20 Unknown Microbiology: Microbiology 09/12/20 17:55 Peripheral/Venous Blood Culture - Final NO GROWTH AFTER 5 DAYS 09/12/20 17:55 Peripheral/Venous Blood Culture - Final NO GROWTH AFTER 5 DAYS Miles/IV: Voiding Method Diaper Active Medications - Current Medications Current Medications: Generic Name Dose Route Start Last Admin Trade Name Freq PRN Reason Stop Dose Admin Acetaminophen 650 mg 09/12/20 23:04 Acetaminophen 325 Mg Tab PO Q4H PRN Pain MILD(1-3)/Fever >100.5/AVERY Hydrocodone Bitart/Acetaminophen 1 each 09/13/20 21:40 09/17/20 22:25 Hydrocodone/Acetaminophen 7.5-325mg Tab PO 1 each Q4H PRN Administration Pain, Moderate (4-6) Alprazolam 0.5 mg 09/12/20 23:27 09/18/20 01:44 Alprazolam 0.5 Mg Tab PO 0.5 mg BID PRN Administration Anxiety Apixaban 5 mg 09/13/20 10:00 09/17/20 22:25 Apixaban 5 Mg Tab PO 5 mg BID RENEA Administration Aspirin 81 mg 09/13/20 10:00 09/17/20 09:52 Aspirin 81 Mg Tab Chew PO 81 mg DAILY RENEA Administration Diltiazem HCl 120 mg 09/13/20 10:00 09/17/20 09:51 Diltiazem Cd 120 Mg Cap PO Not Given DAILY RENEA Fluoxetine HCl 40 mg 09/13/20 10:00 09/17/20 09:53 Fluoxetine 20 Mg Cap PO 40 mg QAM RENEA Administration Furosemide 20 mg 09/13/20 10:00 09/17/20 09:52 Furosemide 20 Mg Tab PO Not Given QDAY RENEA Sodium Chloride 1,000 mls @ 100 mls/hr 09/16/20 09:00 09/17/20 22:24 Nacl 0.9% 1000 Ml IV Infused DIRECT RENEA Infusion Magnesium Hydroxide 30 ml 09/12/20 23:04 09/17/20 22:26 Magnesium Hydroxide (Mom) Oral Liqd Udc PO 30 ml Q4H PRN Administration Constipation Metoprolol Succinate 100 mg 09/13/20 08:00 08/11/21 21:38 Metoprolol Succinate Xl 100 Mg Tab PO Not Given BID@0800,1700 RENEA Ondansetron HCl 4 mg 09/12/20 23:04 Ondansetron 4 Mg/2 Ml Inj IV Q8H PRN Nausea And Vomiting Potassium Chloride 20 meq 09/13/20 10:00 09/17/20 10:43 Potassium Chloride 20 Meq Packet PO 20 meq DAILY RENEA Administration Sodium Chloride 10 ml 09/13/20 10:00 09/17/20 22:26 Sodium Chloride 0.9% 10 Ml Flush Syringe IV 10 ml BID RENEA Administration Sodium Chloride 10 ml 09/12/20 23:04 Sodium Chloride 0.9% 10 Ml Flush Syringe IV PRN PRN LINE FLUSH Valsartan 80 mg 09/13/20 10:00 09/17/20 09:52 Valsartan 40 Mg Tab PO Not Given DAILY RENEA
[2020-09-18 10:00] LABS: BUN/Creatinine Ratio 26; Blood Urea Nitrogen 21 mg/dL (7-17); Calcium 8.5 mg/dL (8.4-10.2); Hemolysis Index 12
[2020-09-18] MEDS: VALSARTAN 40 MG TAB PO SCH (10:19)
[2020-09-18] MEDS: dilTIAZem CD 120 MG CAP PO SCH (10:20)
[2020-09-18] MEDS: ASPIRIN 81 MG TAB CHEW PO SCH (11:18)
[2020-09-18] MEDS: FLUoxetine 20 MG CAP PO SCH (11:18)
[2020-09-18] MEDS: APIXABAN 5 MG TAB PO SCH ×2 (11:18→22:05)
[2020-09-18] MEDS: FUROSEMIDE 20 MG TAB PO SCH (11:25)
[2020-09-18] MEDS: HYDROcodone/ACETAMINOPHEN 7.5-325MG TAB PO PRN ×2 (12:17→22:05)
[2020-09-18] MEDS: POTASSIUM CHLORIDE 20 MEQ PACKET PO SCH (15:26)
[2020-09-19] MEDS: MAGNESIUM HYDROXIDE (MOM) ORAL LIQD UDC PO PRN (00:09)
[2020-09-19 06:41] LABS: Hematocrit 27.2 % (30.3-42.9); Hemoglobin 8.7 gm/dl (10.1-14.3)
--- NOTE | 2020-09-19 08:41 | Progress Note ---
Assessment and Plan Assessment and plan: 79-year-old white female with known history of A. fib currently on anticoagulation, arthritis and recent history of right hip surgery who presents to the emergency room complaining of right hip pain after having a ground-level fall. Patient has had 2 hip surgeries within the last couple of months. She had right domo-hip surgery initially at [facility] and then subsequently had total hip replacement about 3 weeks ago at [facility]. Patient lives at home by herself and not able to ambulate properly. x-ray of the right hip shows previous placement of right hip prosthesis. Persistent superior and lateral dislocation of the femoral components. Admitted for further evaluation and Mx A/P -- Hip dislocation, right Right hip placed in immobilizer. Consult placed to orthopedic surgery for evaluation. patient on analgesic medication as needed. Unable to fix dislocation by close reduction had multiple right hip dislocation in the past Per ortho not a candidate for open reduction as she just had one 2 months ago and that failed plan to manage conservatively PT consulted _ recommendation pending -- History of atrial fibrillation Rate is currently controlled. Patient is on anticoagulation with apixaban. -- Hypertension Blood pressure stable. resume routine home medications and monitor blood pressure closely. -- DVT prophylaxis Patient currently on anticoagulation. -- Full code status Daily clinical course: 09/16: Attempted closed reduction right hip today but unable to do by orthopedic. Patient will need open reduction, will continue to follow. 09/17: patient's orthopedic surgeon, Primo Burns, who informed us that the patient has had multiple dislocations since initial procedure along with cardiac arrest intra-operatively, Ortho recommend conservative management, leaving hip dislocated. Will arrange for SNF for this patient...PT ordered 09/18/20 Patient with hip dislocation. Patient was evaluated by Dr. Calderon, Orthopedic Surgeon. She is on conservative management. Will repeat labs in am. History Interval history: Right hip dislocation Right hip pain Hospitalist Physical - Physical exam Narrative exam: Gen:Not in acute distress, lying in bed HEENT:Normocephalic, atraumatic Neck:supple, no JVD Lungs:clear to auscultation, bilaterally, no wheeze Heart:S1 and S2 reg, no murmurs, rubs or gallop Abd:Soft, non tender, non distended, normal bowel sounds Ext: Tenderness right hip Neuro:awake,alert, - Constitutional Vitals: Temp Pulse Resp BP Pulse Ox 97.9 F 64 16 133/46 97 09/19/20 03:54 09/19/20 03:54 09/19/20 03:54 09/19/20 03:54 09/19/20 03:54 General appearance: Present: no acute distress, well-nourished, other (elderly white female) Results - Labs CBC & Chem 7: 09/19/20 06:30 09/18/20 08:18 Labs: Laboratory Last Values WBC 5.6 K/mm3 (4.5-11.0) 09/13/20 04:33 RBC 2.82 M/mm3 (3.65-5.03) L 09/13/20 04:33 Hgb 8.7 gm/dl (10.1-14.3) L 09/19/20 06:30 Hct 27.2 % (30.3-42.9) L 09/19/20 06:30 MCV 97 fl (79-97) 09/13/20 04:33 MCH 32 pg (28-32) 09/13/20 04:33 MCHC 33 % (30-34) 09/13/20 04:33 RDW 15.7 % (13.2-15.2) H 09/13/20 04:33 Plt Count 228 K/mm3 (140-440) 09/13/20 04:33 Lymph % (Auto) 23.0 % (13.4-35.0) 09/13/20 04:33 Lane % (Auto) 9.4 % (0.0-7.3) H 09/13/20 04:33 Eos % (Auto) 2.9 % (0.0-4.3) 09/13/20 04:33 Baso % (Auto) 1.0 % (0.0-1.8) 09/13/20 04:33 Lymph # (Auto) 1.3 K/mm3 (1.2-5.4) 09/13/20 04:33 Lane # (Auto) 0.5 K/mm3 (0.0-0.8) 09/13/20 04:33 Eos # (Auto) 0.2 K/mm3 (0.0-0.4) 09/13/20 04:33 Baso # (Auto) 0.1 K/mm3 (0.0-0.1) 09/13/20 04:33 Seg Neutrophils % 63.7 % (40.0-70.0) 09/13/20 04:33 Seg Neutrophils # 3.6 K/mm3 (1.8-7.7) 09/13/20 04:33 PT 14.0 Sec. (12.2-14.9) 09/13/20 04:33 INR 1.03 (0.87-1.13) 09/13/20 04:33 APTT 33.5 Sec. (24.2-36.6) 09/12/20 17:55 Sodium 139 mmol/L (137-145) 09/18/20 08:18 Potassium 4.9 mmol/L (3.6-5.0) 09/18/20 08:18 Chloride 104.4 mmol/L (98-107) 09/18/20 08:18 Carbon Dioxide 26 mmol/L (22-30) 09/18/20 08:18 Anion Gap 14 mmol/L 09/18/20 08:18 BUN 21 mg/dL (7-17) H 09/18/20 08:18 Creatinine 0.8 mg/dL (0.6-1.2) 09/18/20 08:18 Estimated GFR > 60 ml/min 09/18/20 08:18 BUN/Creatinine Ratio 26 % 09/18/20 08:18 Glucose 111 mg/dL (65-100) H 09/18/20 08:18 Lactic Acid 1.50 mmol/L (0.7-2.0) 09/12/20 20:45 Calcium 8.5 mg/dL (8.4-10.2) 09/18/20 08:18 Total Bilirubin 0.60 mg/dL (0.1-1.2) 09/12/20 17:55 AST 18 units/L (5-40) 09/12/20 17:55 ALT 11 units/L (7-56) 09/12/20 17:55 Alkaline Phosphatase 83 units/L (35-129) 09/12/20 17:55 Total Protein 6.4 g/dL (6.3-8.2) 09/12/20 17:55 Albumin 3.4 g/dL (3.9-5) L 09/12/20 17:55 Albumin/Globulin Ratio 1.1 % 09/12/20 17:55 Nasal Screen MRSA (PCR) Negative (Negative) 09/13/20 Unknown Coronavirus (PCR) Negative (Negative) 09/18/20 10:55 Miles/IV: Voiding Method Toilet Active Medications - Current Medications Current Medications: Generic Name Dose Route Start Last Admin Trade Name Freq PRN Reason Stop Dose Admin Acetaminophen 650 mg 09/12/20 23:04 Acetaminophen 325 Mg Tab PO Q4H PRN Pain MILD(1-3)/Fever >100.5/AVERY Hydrocodone Bitart/Acetaminophen 1 each 09/13/20 21:40 09/18/20 22:05 Hydrocodone/Acetaminophen 7.5-325mg Tab PO 1 each Q4H PRN Administration Pain, Moderate (4-6) Alprazolam 0.5 mg 09/12/20 23:27 09/18/20 22:05 Alprazolam 0.5 Mg Tab PO 0.5 mg BID PRN Administration Anxiety Apixaban 5 mg 09/13/20 10:00 09/18/20 22:05 Apixaban 5 Mg Tab PO 5 mg BID RENEA Administration Aspirin 81 mg 09/13/20 10:00 09/18/20 11:18 Aspirin 81 Mg Tab Chew PO 81 mg DAILY RENEA Administration Diltiazem HCl 120 mg 09/13/20 10:00 09/18/20 10:20 Diltiazem Cd 120 Mg Cap PO Not Given DAILY RENEA Fluoxetine HCl 40 mg 09/13/20 10:00 09/18/20 11:18 Fluoxetine 20 Mg Cap PO 40 mg QAM RENEA Administration Furosemide 20 mg 09/13/20 10:00 09/18/20 11:25 Furosemide 20 Mg Tab PO 20 mg QDAY RENEA Administration Sodium Chloride 1,000 mls @ 100 mls/hr 09/16/20 09:00 09/17/20 22:24 Nacl 0.9% 1000 Ml IV Infused DIRECT RENEA Infusion Magnesium Hydroxide 30 ml 09/12/20 23:04 09/19/20 00:09 Magnesium Hydroxide (Mom) Oral Liqd Udc PO 30 ml Q4H PRN Administration Constipation Metoprolol Succinate 100 mg 09/13/20 08:00 09/18/20 08:20 Metoprolol Succinate Xl 100 Mg Tab PO Not Given BID@0800,1700 RENEA Ondansetron HCl 4 mg 09/12/20 23:04 Ondansetron 4 Mg/2 Ml Inj IV Q8H PRN Nausea And Vomiting Sodium Chloride 10 ml 09/13/20 10:00 09/18/20 12:21 Sodium Chloride 0.9% 10 Ml Flush Syringe IV 10 ml BID RENEA Administration Sodium Chloride 10 ml 09/12/20 23:04 Sodium Chloride 0.9% 10 Ml Flush Syringe IV PRN PRN LINE FLUSH Valsartan 80 mg 09/13/20 10:00 09/18/20 10:19 Valsartan 40 Mg Tab PO Not Given DAILY RENEA
[2020-09-19 09:00] VITALS: BP 111/37
[2020-09-19] MEDS: POTASSIUM CHLORIDE 20 MEQ PACKET PO SCH (09:02)
[2020-09-19] MEDS: METOPROLOL SUCCINATE XL 100 MG TAB PO SCH ×2 (09:02→17:51)
[2020-09-19] MEDS: ASPIRIN 81 MG TAB CHEW PO SCH (09:02)
[2020-09-19] MEDS: APIXABAN 5 MG TAB PO SCH (09:03)
[2020-09-19] MEDS: FUROSEMIDE 20 MG TAB PO SCH (09:03)
[2020-09-19] MEDS: FLUoxetine 20 MG CAP PO SCH (09:03)
[2020-09-19] MEDS: ALPRAZolam 0.5 MG TAB PO PRN (09:39)
[2020-09-19] MEDS: HYDROcodone/ACETAMINOPHEN 7.5-325MG TAB PO PRN ×2 (09:49→16:41)
--- NOTE | 2020-09-19 15:21 | Discharge Summary ---
Providers - Providers Date of Admission: 09/15/20 09:19 Date of discharge: 09/19/20 Attending physician: MURPHY ROMERO 09/13/20 04:18 Consult to Physician [CONS] Routine Comment: Consulting Provider: SHON CALDERON Physician Instructions: Reason For Exam: RIGHT HIP DISLOCATION 09/17/20 15:53 Physical Therapy Evaluation and Treat [CONS] Routine Comment: Reason For Exam: Debility 09/17/20 18:58 Consult to Wound/ET Nurse [CONS] Urgent Reason For Exam: wound eval 09/18/20 10:14 Occupational Therapy Evaluate and Treat [CONS] Routine Comment: Reason For Exam: Debility Primary care physician: TEACHER LEARNING DISABLED Hospitalization Condition: Fair Hospital course: 79-year-old white female with known history of A. fib currently on anticoagulation, arthritis and recent history of right hip surgery who presented to the emergency room complaining of right hip pain after having a ground- level fall. Patient denies any loss of consciousness and denies hitting her head. She indicated that she was walking when right knee suddenly give away and fell. She admits that she has had multiple falls recently. Patient has had 2 hip surgeries within the last couple of months. She had right domo-hip surgery initially at [facility] and then subsequently had total hip replacement about 3 weeks ago at [facility]. Patient lives at home by herself and not able to ambulate properly. Work-up in the emergency room today, x-ray of the right hip shows previous placement of right hip prosthesis. Persistent superior and lateral dislocation of the femoral components. A/P -- Hip dislocation, right Right hip placed in immobilizer. Consult placed to orthopedic surgery for evaluation. patient on analgesic medication as needed. Unable to fix dislocation by close reduction had multiple right hip dislocation in the past Per ortho not a candidate for open reduction as she just had one 2 months ago and that failed plan to manage conservatively PT consulted _ recommendation pending -- History of atrial fibrillation Rate is currently controlled. Patient is on anticoagulation with apixaban. -- Hypertension Blood pressure stable. resume routine home medications and monitor blood pressure closely. -- DVT prophylaxis Patient currently on anticoagulation. -- Full code status Daily clinical course: 09/16: Attempted closed reduction right hip today but unable to do by orthopedic. Patient will need open reduction, will continue to follow. 09/17: patient's orthopedic surgeon, Primo Burns, who informed us that the patient has had multiple dislocations since initial procedure along with cardiac arrest intra-operatively, Ortho recommend conservative management, leaving hip dislocated. Will arrange for SNF for this patient...PT ordered 09/18/20 Patient with hip dislocation. Patient was evaluated by Dr. Calderon, Orthopedic Surgeon. She is on conservative management. Will repeat labs in am. 09/19/20 Patient transferred to SNF Disposition: 03 [facility] Final Discharge Diagnosis (Prints w/discharge instructions): 1.Dislocation of hip - Discharge Diagnoses (1) Hip dislocation, right Status: Acute (2) History of atrial fibrillation Status: Chronic (3) Hypertension Status: Chronic (4) Immobility Status: Acute Core Measure Documentation - Palliative Care Palliative Care/ Comfort Measures: Not Applicable - Core Measures Any of the following diagnoses?: none Exam - Constitutional Vitals: Temp Pulse Resp BP Pulse Ox 97.9 F 70 18 111/37 99 09/19/20 08:55 09/19/20 09:02 09/19/20 08:55 09/19/20 09:02 09/19/20 08:55 Plan Activity: no restrictions Diet: low fat, low cholesterol, low salt Plan of Treatment: 1.Follow up with Physician at facility in 2-3 days 2.Follow up with your orthopedic Surgeon in 2-3 weeks Follow up with: PRIMARY CARE, [Primary Care Provider] - 3-5 Days Prescriptions: HYDROcodone/APAP 7.5-325 [[place] 7.5-325 mg TAB] 1 each PO Q8HR PRN #10 PRN Reason: Pain ALPRAZolam [Xanax TAB] 0.5 mg PO BID PRN #10 PRN Reason: Anxiety
[2020-09-19] MEDS: dilTIAZem CD 120 MG CAP PO SCH (17:50)
[2020-09-19] MEDS: VALSARTAN 40 MG TAB PO SCH (17:50)
== END 2020-09-19 18:31 | DRG 538 ==
LOC: ED 14:01 → 3B-SURG 22:34 → OBSVTOIN 09-15 09:19 → UNDODISIN 09-17 18:00
PROVIDERS: ADMIT Internal Medicine Geriatric Medicine; ATTEND Internal Medicine
PROC: 0SW9XJZ Revision of Synthetic Substitute in Right Hip Joint, External Approach (ICD-10-PCS; principal; 2020-09-16)
DX: S73.004A Unspecified dislocation of right hip, initial encounter (principal); I10 Essential (primary) hypertension; I48.91 Unspecified atrial fibrillation; Z20.822 Contact with and (suspected) exposure to COVID-19; M19.90 Unspecified osteoarthritis, unspecified site; F41.9 Anxiety disorder, unspecified; Z79.899 Other long term (current) drug therapy; Z79.891 Long term (current) use of opiate analgesic; Z79.01 Long term (current) use of anticoagulants; Z79.82 Long term (current) use of aspirin; Z74.09 Other reduced mobility; Z88.2 Allergy status to sulfonamides; Z90.710 Acquired absence of both cervix and uterus; Z85.828 Personal history of other malignant neoplasm of skin; Z95.810 Presence of automatic (implantable) cardiac defibrillator
CPT/HCPCS: 36415; 71045; 80048; 80053; 82140; 85014; 85018; 85025; 85610; 85730; 87040; 87641; 96374; G0378; J0330; J0692; J2270; J2704; J7030; J7040; U0003